=== PATIENT | female | born 1965 | race Caucasian/White ===

== ENCOUNTER 2017-01-16 10:15 | Emergency (ER) | payer MEDICARE, MEDICAID ==
[~2017-01-16] VITALS: Ht 165.1 cm; Wt 77.3 kg
[2017-01-16 10:15] VITALS: BP 128/80; PULSE 55; RESP 14; O2SAT 97
[~2017-01-16 10:15] MED LIST: AMIT10TA6 PO; FLUT9.9S NS; IBUP800T28 PO; LORA10CA PO; METO-394 PO; NAPR500T PO; OMEP20TA24 PO; OXYC-465 PO; SERT20OR6 PO; SUMA50TA31 PO
[2017-01-16] MEDS ORDERED: predniSONE 20 mg Tablet PO ONE (11:20)
--- NOTE | 2017-01-16 11:27 | ED.REPORT ---
HPI-Back Pain 40 and Over Date of Service Jan 16, 2017 ED Provider: Parker Call PA-C Gail 51-year-old female with a history of high blood pressure, back pain and a remote history of spinal fracture who presents to emergency department with a chief complaint of low back pain. Patient reports worsening low back pain radiating to her left hip over the last 2 days. She denies any recent injuries. She has not taken anything for her pain today. Denies numbness, tingling, weakness or pain in lower extremity. Denies fever, DM, HIV, organ transplant, immunosuppression, recent surgery, recent infection, history of back surgery, surgical implants and IV drug use. Denies bowel/bladder dysfunction and saddle anesthesia. Denies history of cancer, Samantha-Danlos, Marfan syndrome, AAA. Denies urinary symptoms. Nursing Notes Stated Complaint: BACK PAIN Chief Complaint: Back Pain or Injury Nursing Notes Reviewed: Yes Allergies: Coded Allergies: morphine (Unverified Allergy, Unknown, 02/19/16) Uncoded Allergies: MORPHINE RASH (Allergy, Severe, RASH, 02/17/16) Scheduled Amitriptyline (Amitriptyline) 10 Mg Tablet 20 MG PO HS Fluticasone Propionate (Flonase Allergy Relief) 50 Mcg/Actuation [place].susp 9.9 ML NS DAILY Loratadine (Claritin) 10 Mg Capsule 10 MG PO DAILY Metoprolol Succinate ER (Metoprolol Succinate ER) 100 Mg Tab.er.24h 100 MG PO DAILY Omeprazole Magnesium (Prilosec Otc) 20 Mg Tablet.dr 20 MG PO DAILY Prednisone (PredniSONE) 20 Mg Tablet 40 MG PO DAILY Sertraline HCl (Sertraline) 20 Mg/1 Ml Oral.conc 100 MG PO DAILY Scheduled PRN Ibuprofen (Ibuprofen) 800 Mg Tablet 800 MG PO TID PRN PRN For Pain Naproxen (Naprosyn) 500 Mg Tablet 500 MG PO BID PRN PRN For Pain oxyCODONE-Acetaminophen 7.5-325 mg (oxyCODONE-Acetaminophen 7.5-325 mg) 1 Each Tablet 1-2 TAB PO Q6H PRN PRN For Pain Miscellaneous Medications Sumatriptan Succinate (Imitrex) 50 Mg Tablet 50-100 MG PO General Time Seen by MD: 11:01 Chief Complaint Lumbar pain Sudden in Onset?: No Past Medical History Past Medical History High blood pressure Past Surgical History Denies Smoking History Unknown if Ever Smoker Social History Alcohol Use: "Social" Drug Use: Denies drug use Ambulatory Status Independent Review of Systems Review of Systems Note: Negative unless stated otherwise in history of present illness Physical Exam General: Well appearing, well developed, well nourished, no acute distress. Head: Atraumatic, normocephalic. Eyes: No scleral icterus or injection. No discharge. Vision grossly intact. ENT: Voice clear, hearing grossly intact. Respiratory: Regular rate and rhythm. Breath sounds present, clear to auscultation and equal bilaterally. No respiratory distress. No increased work of breathing, speaks in complete sentences. Cardiovascular: Regular rate and rhythm, without murmur, gallop or rub. No pedal edema. Gastrointestinal: Abdomen flat and non-tender without guarding or rebound. Bowel sounds normoactive. Skin: Warm and dry. Back: Normal to inspection, nontender, negative CVA tenderness. Neurological: Hip flexion, knee extension, ankle dorsiflexion and plantarflexion strength 5/5 B/L. Patellar and Achilles reflexes present and equal B/L. Sensation to sharp touch intact at medial leg, dorsal foot and lateral foot B/L. negative straight leg raise, negative cross straight leg raise. Psychological: Alert and oriented. Speech appropriate, linear and logical. Behavior appropriate. Initial Vital Signs Vital Signs (First) Date Time Temp Pulse Resp B/P Pulse Ox O2 Delivery O2 Flow Rate FiO2 01/16/17 10:15 36.7 55 14 128/80 97 01/16/17 12:10 Room Air Normal Re-Eval/Medical Decision Med Decision/Clinical Course 51-year-old female with a history of hypertension Presents with chief complaint of low back pain. Reports worsening low back pain over the last 2 days, associated with radiation to the left hip. Denies red flag symptoms. Physical examination reveals a nontender back. neurological examination is normal. Vital signs are normal, specifically afebrile. Patient reports no history of trauma, there are no neurological deficits and I see no indication for imaging at this time. Back pain is without red flag signs or symptoms for acute disc herniation, cauda equina, infection, hematoma, trauma, pyelonephritis, nephrolithiasis, AAA , cancer. I believe this is musculoskeletal back pain. Treatment is initiated with ketorolac, acetaminophen, prednisone. Advise regarding [id number] analgesia. Provided prescription for prednisone burst. Advised regarding primary care follow-up, provided emergency return precautions. Patient verbalized understanding of, and consent to, the plan. Discharge & Departure Impression: Primary Impression: Low back pain Chronicity: chronic Back pain laterality: left Sciatica presence: without sciatica Qualified Code: M54.5 - Low back pain Disposition: Home Discharge Condition All VS Reviewed: Yes Condition: Stable Additional Instructions: Evaluation in the emergency department for lower back pain. History and physical are reassuring for a dangerous neurological condition. History does not suggest that this is likely to be a spinal fracture. Your neurological examination is normal, indicating there is no damage to the nerves in your back. I see no indication to perform imaging tests at this time. Treatment is largely symptomatic. Rest is important, especially for the next couple of days, but avoid total bed rest. Reasonable activity as tolerated is the best. The pain is best treated with 600 mg of ibuprofen (Advil, Motrin) every 6 hours , or 1000 mg of acetaminophen (Tylenol) every 6 hours. These drugs can be taken at the same time for more severe pain. I have provided a prescription for prednisone 40 mg to be taken once a day for the next 4 days, starting tomorrow. This will reduce inflammation and pain in your back. Follow-up with your primary care provider in the next week or two to be sure your recovery is progressing as expected. Return the emergency department for new or worsening symptoms such as loss of bowel/bladder control, numbness between your legs, new weakness/numbness or high fever. Referrals: Charmaine Murillo MD (PCP) EDSupervising Provider for APC: Justina Boswell MD copies to: Charmaine Murillo MD, Seth PA-C Jan 16, 2017 11:26
[2017-01-16] MEDS ORDERED: PRE20 PO (11:31)
[2017-01-16 12:10] VITALS: BP 137/95; PULSE 62; RESP 15; O2SAT 97
== END 2017-01-16 12:12 | disposition home or self-care (01) ==
LOC: SED 10:15
DX: M54.5 Low back pain (principal); I10 Essential (primary) hypertension; Z87.81 Personal history of (healed) traumatic fracture; Z98.890 Other specified postprocedural states; Z88.5 Allergy status to narcotic agent
CPT/HCPCS: 96372; 99283; J1885